=== PATIENT | female | born 1975 ===

== ENCOUNTER 2016-08-13 13:15 | Outpatient (RCR) | payer OTHER | END 2016-09-22 | disposition home or self-care (01) | LOC: WSST | DX: R49.0 Dysphonia (principal) ==

== ENCOUNTER 2018-12-13 08:37 | Outpatient (RCR) | payer OTHER | END 2019-01-03 15:28 | LOC: WSOH 08:37 | DX: S39.012A Strain of muscle, fascia and tendon of lower back, initial encounter (principal); V43.02XA Car driver injured in collision with other type car in nontraffic accident, initial encounter; Y92.481 Parking lot as the place of occurrence of the external cause; Y99.0 Civilian activity done for income or pay; K21.9 Gastro-esophageal reflux disease without esophagitis; E28.2 Polycystic ovarian syndrome ==

== ENCOUNTER → 2020-01-19 | Outpatient (CLI) | payer BC | LOC: COL.LAB 08:00 → SDCO 01-22 09:00 → EDSTATUS 01-22 09:00 | DX: D50.9 Iron deficiency anemia, unspecified (principal); R10.9 Unspecified abdominal pain; R19.5 Other fecal abnormalities; Z20.828 Contact with and (suspected) exposure to other viral communicable diseases ==